=== PATIENT | female | born 1980 | race Caucasian/White ===

== ENCOUNTER 2017-11-01 12:12 | Emergency (ER) | payer BC ==
[2017-11-01] MEDS ORDERED: NS 0.9% 1000 ML* 1,000 ML IV ONE (13:29)
[2017-11-01 13:55] LABS: Hematocrit 38 % (35-47); Hemoglobin 12.8 g/dl (12.0-16.0); Mean Corpuscular HGB Conc 34 g/dl (31-36); Mean Corpuscular Hemoglobin 32 pg (27-31); Mean Corpuscular Volume 94 fL (80-97); Mean Platelet Volume 8 um3 (7.4-10.4); Red Blood Count 4.02 10^6/ul (4.0-5.4); Red Cell Distribution Width 14 % (10.5-15); White Blood Count 7.1 10^3/ul (3.5-10.8)
--- NOTE | 2017-11-01 14:05 | RAD ---
HISTORY: Dizziness COMPARISONS: None VIEWS: 1: frontal portable view of the chest at 1:48 PM FINDINGS: LINES AND TUBES: None. CARDIOMEDIASTINAL SILHOUETTE: The cardiomediastinal silhouette is normal for portable technique. PLEURA: The costophrenic angles are sharp. No pleural abnormalities are noted. LUNG PARENCHYMA: The lungs are clear. ABDOMEN: The upper abdomen is clear. There is no subphrenic gas. BONES AND SOFT TISSUES: No bone or soft tissue abnormalities are noted. IMPRESSION: NO ACTIVE CARDIOPULMONARY DISEASE.
[2017-11-01 14:11] LABS: ALT 11 U/L (7-52); AST 15 U/L (13-39); Albumin 3.8 g/dL (3.2-5.2); Alkaline Phosphatase 32 U/L (34-104); Anion Gap 4 mmol/L (2-11); BUN/Creatinine Ratio 17.9 (8-20); Blood Urea Nitrogen 10 mg/dL (6-24); C Reactive Protein < 1.00 mg/L (< 5.00); CO2 Carbon Dioxide 28 mmol/L (22-32); Calcium 9.3 mg/dL (8.6-10.3); Chloride 108 mmol/L (101-111); Creatine Kinase 97 U/L (10-223); EGFR African American 155.8 (>60); EGFR Non-African American 121.2 (>60); Globulin 2.5 g/dL (2-4); Glucose 82 mg/dL (70-100); Lipase 17 U/L (11.0-82.0); Magnesium 1.8 mg/dL (1.9-2.7); Potassium 4.1 mmol/L (3.5-5.0); Sodium 140 mmol/L (133-145); Total Protein 6.3 g/dL (6.4-8.9)
--- NOTE | 2017-11-01 14:11 | RAD ---
HISTORY: Headache, dizziness COMPARISONS: None TECHNIQUE: Multiple contiguous axial CT scans were obtained of the head without intravenous contrast. FINDINGS: HEMORRHAGE/INFARCT: There is no hemorrhage or acute infarct. MASSES/SHIFT: There is no mass or shift. EXTRA-AXIAL SPACES: There are no extra-axial fluid collections. SULCI AND VENTRICLES: The sulci and ventricles are normal in size and position for the patient's stated age. CEREBRUM: There are no focal parenchymal abnormalities. BRAINSTEM: There are no focal parenchymal abnormalities. CEREBELLUM: There are no focal parenchymal abnormalities. VESSELS: The vessels are grossly normal. PARANASAL SINUSES: The paranasal sinuses are clear. ORBITS: The orbits are unremarkable. BONES AND SOFT TISSUE: No bone or soft tissue abnormalities are noted. OTHER: None IMPRESSION: NO ACUTE INTRACRANIAL PATHOLOGY.
[2017-11-01 14:49] LABS: TSH (Thyroid Stimulating Horm) 0.62 mcIU/mL (0.34-5.60)
--- NOTE | 2017-11-01 15:38 | ED ---
Aayush Hernández Benjamin, scribed for Everton Caballero MD on 11/01/17 at 1327 . Complex/Multi-Sys Presentation - HPI Summary HPI Summary: 37yo female c/o not feeling right, stating might be having a panic attack since last Monday. Pt admits nausea and racing heart, SOB, and diaphoresis. Pt denies feeling dizzy, states feeling like her proprioception is off. Pt says the symptoms of sweating, nausea, diaphoresis triggers the panic attack, which then causes her heart to race. Also reports intermittent stiff neck and pressure in head. Pt had recent uterine ablation, and slipped and fell on ice this morning. Pt has been taking oxycodone for post-op. Pt also took Xanax this morning around 1100. Pt denies any vaginal discharge/bleeding, abnormal stool appearance, any urinary symptoms, and ear aches. Pt was seen at [facility] last Monday for similar symptoms. - History Of Current Complaint Chief Complaint: EDGeneral Time Seen by Provider: 11/01/17 12:32 Hx Obtained From: Patient - Allergies/Home Medications Allergies/Adverse Reactions: Allergies Allergy/AdvReac Type Severity Reaction Status Date / Time seasonal Allergy Congestion Uncoded 02/28/16 14:31 PMH/Surg Hx/FS Hx/Imm Hx - Surgical History Surgery Procedure, Year, and Place: . laparoscopic to check for possilbe ectopic . tonsillectomy Infectious Disease History: No Infectious Disease History: Denies: Traveled Outside the [place] in Last 30 Days - Family History Known Family History: Positive: Hypertension Negative: Cardiac Disease, Diabetes - Social History Occupation: Employed Full-time Lives: With Family Alcohol Use: Occasionally Substance Use Type: Reports: None Smoking Status (MU): Heavy Every Day Tobacco Smoker Review of Systems Positive: Skin Diaphoresis Eyes: Negative ENT: Negative Positive: Palpitations - racing heart Respiratory: Negative Negative: Shortness Of Breath Positive: Nausea Genitourinary: Negative Negative: burning, dysuria, hematuria Positive: Other - stiff neck Skin: Negative Neurological: Other - pressure in head, Negative: Headache Positive: Anxious All Other Systems Reviewed And Are Negative: Yes Physical Exam - Summary Physical Exam Summary: General: well-appearing, no pain distress Skin: warm, color reflects adequate perfusion, dry Head: normal Eyes: EOMI, BARRERA ENT: normal Neck: supple, nontender Respiratory: CTA, breath sounds present Cardiovascular: RRR Abdomen: soft, nontender Bowel: present Musculoskeletal: normal, strength/ROM intact Neurological: normal, sensory/motor intact, A&O x3 Psychological: affect/mood appropriate Triage Information Reviewed: Yes Vital Signs On Initial Exam: Initial Vitals Temp Pulse Resp BP Pulse Ox 97.8 F 70 17 121/81 100 11/01/17 12:14 11/01/17 12:14 11/01/17 12:14 11/01/17 12:14 11/01/17 12:14 Vital Signs Reviewed: Yes Diagnostics - Vital Signs Vital Signs Temp Pulse Resp BP Pulse Ox 11/01/17 12:14 97.8 F 70 17 121/81 100 - Laboratory Lab Results: Lab Results 11/01/17 11/01/17 11/01/17 Range/Units 13:45 13:45 13:45 WBC (3.5-10.8) 10^3/ul RBC (4.0-5.4) 10^6/ul Hgb (12.0-16.0) g/dl Hct (35-47) % MCV (80-97) fL MCH (27-31) pg MCHC (31-36) g/dl RDW (10.5-15) % Plt Count (150-450) 10^3/ul MPV (7.4-10.4) um3 Neut % (Auto) (38-83) % Lymph % (Auto) (25-47) % [place] % (Auto) (1-9) % Eos % (Auto) (0-6) % Baso % (Auto) (0-2) % Absolute Neuts (auto) (1.5-7.7) 10^3/ul Absolute Lymphs (auto) (1.0-4.8) 10^3/ul Absolute Monos (auto) (0-0.8) 10^3/ul Absolute Eos (auto) (0-0.6) 10^3/ul Absolute Basos (auto) (0-0.2) 10^3/ul Absolute Nucleated RBC 10^3/ul Nucleated RBC % INR (Anticoag Therapy) 0.92 (0.77-1.02) APTT 30.1 (26.0-36.3) seconds D-Dimer, Quantitative < 200 (Less Than 230) ng/mL Sodium 140 (133-145) mmol/L Potassium 4.1 (3.5-5.0) mmol/L Chloride 108 (101-111) mmol/L Carbon Dioxide 28 (22-32) mmol/L Anion Gap 4 (2-11) mmol/L BUN 10 (6-24) mg/dL Creatinine 0.56 (0.51-0.95) mg/dL Est GFR ( Amer) 155.8 (>60) Est GFR (Non-Af Amer) 121.2 (>60) BUN/Creatinine Ratio 17.9 (8-20) Glucose 82 (70-100) mg/dL Lactic Acid 0.8 (0.5-2.0) mmol/L Calcium 9.3 (8.6-10.3) mg/dL Magnesium 1.8 L (1.9-2.7) mg/dL Total Bilirubin 0.30 (0.2-1.0) mg/dL AST 15 (13-39) U/L ALT 11 (7-52) U/L Alkaline Phosphatase 32 L (34-104) U/L Total Creatine Kinase 97 (10-223) U/L CK-MB (CK-2) 1.5 (0.6-6.3) ng/mL Troponin I 0.00 (<0.04) ng/mL C-Reactive Protein < 1.00 (< 5.00) mg/L B-Natriuretic Peptide ( - 100) pg/mL Total Protein 6.3 L (6.4-8.9) g/dL Albumin 3.8 (3.2-5.2) g/dL Globulin 2.5 (2-4) g/dL Albumin/Globulin Ratio 1.5 (1-3) Lipase 17 (11.0-82.0) U/L TSH 0.62 (0.34-5.60) mcIU/mL Beta HCG, Quant < 0.60 mIU/mL 11/01/17 11/01/17 Range/Units 13:45 13:45 WBC 7.1 (3.5-10.8) 10^3/ul RBC 4.02 (4.0-5.4) 10^6/ul Hgb 12.8 (12.0-16.0) g/dl Hct 38 (35-47) % MCV 94 (80-97) fL MCH 32 H (27-31) pg MCHC 34 (31-36) g/dl RDW 14 (10.5-15) % Plt Count 182 (150-450) 10^3/ul MPV 8 (7.4-10.4) um3 Neut % (Auto) 69.9 (38-83) % Lymph % (Auto) 22.8 L (25-47) % [place] % (Auto) 6.0 (1-9) % Eos % (Auto) 0.6 (0-6) % Baso % (Auto) 0.7 (0-2) % Absolute Neuts (auto) 5.0 (1.5-7.7) 10^3/ul Absolute Lymphs (auto) 1.6 (1.0-4.8) 10^3/ul Absolute Monos (auto) 0.4 (0-0.8) 10^3/ul Absolute Eos (auto) 0 (0-0.6) 10^3/ul Absolute Basos (auto) 0 (0-0.2) 10^3/ul Absolute Nucleated RBC 0 10^3/ul Nucleated RBC % 0 INR (Anticoag Therapy) (0.77-1.02) APTT (26.0-36.3) seconds D-Dimer, Quantitative (Less Than 230) ng/mL Sodium (133-145) mmol/L Potassium (3.5-5.0) mmol/L Chloride (101-111) mmol/L Carbon Dioxide (22-32) mmol/L Anion Gap (2-11) mmol/L BUN (6-24) mg/dL Creatinine (0.51-0.95) mg/dL Est GFR ( Amer) (>60) Est GFR (Non-Af Amer) (>60) BUN/Creatinine Ratio (8-20) Glucose (70-100) mg/dL Lactic Acid (0.5-2.0) mmol/L Calcium (8.6-10.3) mg/dL Magnesium (1.9-2.7) mg/dL Total Bilirubin (0.2-1.0) mg/dL AST (13-39) U/L ALT (7-52) U/L Alkaline Phosphatase (34-104) U/L Total Creatine Kinase (10-223) U/L CK-MB (CK-2) (0.6-6.3) ng/mL Troponin I (<0.04) ng/mL C-Reactive Protein (< 5.00) mg/L B-Natriuretic Peptide 80 ( - 100) pg/mL Total Protein (6.4-8.9) g/dL Albumin (3.2-5.2) g/dL Globulin (2-4) g/dL Albumin/Globulin Ratio (1-3) Lipase (11.0-82.0) U/L TSH (0.34-5.60) mcIU/mL Beta HCG, Quant mIU/mL Result Diagrams: 11/01/17 13:45 11/01/17 13:45 Lab Statement: Any lab studies that have been ordered have been reviewed, and results considered in the medical decision making process. - Radiology CXR Xray Interpretation: No Acute Changes Radiology Interpretation Completed By: Radiologist - Dr. Caballero has reviewed this radiology report and agrees. - CT CT Brain CT Interpretation: No Acute Changes CT Interpretation Completed By: Radiologist - Dr. Caballero has reviewed this radiology report and agrees. - EKG 1336. Cardiac Rate: Bradycardia EKG Rhythm: Sinus Bradycardia - 56bpm EKG Interpretation: no STEMI Re-Evaluation - Re-Evaluation First Eval Re-Evaluation Time: 15:22 Comment: Reviewed pt's blood work, EKG, CXR, and CT result. Pt will be discharged. Advised to follow up with her PCP. Complex Multi-Symp Course/Dx Course Of Treatment: BP noted. Allergies noted. Medications reviewed. ORTHOSTATICS MILDLY POSITIVE. DISCUSSED RESULTS WITH PATIENT. F/U PMD; RETURN IF WORSE. - Diagnoses Provider Diagnoses: Dizziness, Orthostatic hypotension Discharge - Discharge Plan Condition: Stable Disposition: HOME Patient Education Materials: Dizziness (ED) Referrals: Lee Ann Mcintosh MD [Primary Care Provider] - Additional Instructions: FOLLOW UP WITH YOUR DOCTOR. RETURN TO THE EMERGENCY DEPARTMENT FOR ANY WORSENING OF YOUR CONDITION OR QUESTIONS OR CONCERNS. The documentation as recorded by the Aayush ontiveros Benjamin accurately reflects the service I personally performed and the decisions made by , Everton Caballero MD.
[2017-11-01 15:57] VITALS: BP 114/62
== END 2017-11-01 15:56 | disposition home or self-care (01) ==
LOC: ED 12:12
DX: R42 Dizziness and giddiness (principal); I95.1 Orthostatic hypotension; Z72.0 Tobacco use
CPT/HCPCS: 36415; 70450; 71010; 80053; 82550; 82553; 83605; 83690; 83735; 83880; 84443; 84484; 84702; 85025; 85379; 85610; 85730; 86140; 93005; 96360; 99283

== ENCOUNTER 2017-12-21 13:15 | Emergency (ER) | payer BC | END 2017-12-21 15:46 | disposition left against medical advice (07) | LOC: UCEAST 13:15 | DX: M79.9 Soft tissue disorder, unspecified (principal); Z53.21 Procedure and treatment not carried out due to patient leaving prior to being seen by health care provider ==